=== PATIENT | male | born 1975 | race Caucasian/White ===

== ENCOUNTER → 2017-03-10 | Outpatient (CLI) | payer OTHER ==
[~2017-03-10] VITALS: Ht 175.3 cm; Wt 69.8 kg
[~2017-03-10] MED LIST: MULTI-VITAMIN-1 EACH PO; ZANTAC300 MG PO
== END | disposition home or self-care (01) ==
LOC: AMB 08:40
PROC: 0DB68ZX Excision of Stomach, Via Natural or Artificial Opening Endoscopic, Diagnostic (ICD-10-PCS; principal; 2017-03-10)
DX: K31.7 Polyp of stomach and duodenum (principal); K21.0 Gastro-esophageal reflux disease with esophagitis; K44.9 Diaphragmatic hernia without obstruction or gangrene
CPT/HCPCS: 88305; 88342 TC; J2250